=== PATIENT | male | born 2005 | race American Indian/Alaskan Native ===

== ENCOUNTER 2023-04-10 15:02 | Emergency (ER) | payer OTHER ==
[~2023-04-10] VITALS: Ht 180.3 cm; Wt 99.9 kg
[2023-04-10] MEDS ORDERED: IBUPROFEN 600MG TAB PO ONE (16:30)
[2023-04-10] MEDS ORDERED: AMOXICILLIN 500 MG CAP PO ONE (16:30)
[2023-04-10] MEDS ORDERED: IBUP-1022 PO (16:32)
[2023-04-10] MEDS ORDERED: AMOX500C PO (16:32)
[2023-04-10 16:41] VITALS: BP 130/68; TEMP 97.5; O2SAT 97
== END 2023-04-10 16:42 | disposition home or self-care (01) ==
LOC: M ED 15:02
DX: K04.7 Periapical abscess without sinus (principal); Z79.2 Long term (current) use of antibiotics; Z79.1 Long term (current) use of non-steroidal anti-inflammatories (NSAID)